=== PATIENT | female | born 1980 | race Caucasian/White ===

== ENCOUNTER 2021-09-21 08:24 | Outpatient (REF) | payer OTHER, SELFPAY ==
[2021-09-21 11:04] LABS: Hematocrit 40.4 % (37.0-47.0); Hemoglobin 13.2 g/dl (12.0-16.0); Mean Corpuscular HGB Conc 32.7 g/dl (31.0-35.0); Mean Corpuscular Hemoglobin 29.1 pg (27.0-33.0); Mean Platelet Volume 11.2 fL (9.4-12.3); Platelet Count 226 X10*3/uL (160-400); Red Blood Count 4.54 X10*6/uL (4.20-5.50); Red Cell Distribution Width 13.3 % (11.0-16.0); White Blood Count 6.6 X10*3/uL (4.8-10.8)
[2021-09-21 11:20] LABS: Alanine Aminotransferase 21 U/L (0-31); Albumin Level 3.9 g/dL (3.5-5.0); Alkaline Phosphatase 64 U/L (39-117); Anion Gap 10 (12-20); Aspartate Amino Transferase 17 U/L (5-31); Bilirubin Total 0.6 mg/dL (0.0-1.0); Blood Urea Nitrogen 9 mg/dL (9-16); Calcium 8.7 mg/dL (8.4-10.2); Carbon Dioxide 25 mmol/L (22-29); Chloride 109 mmol/L (96-108); Cholesterol 180 mg/dL; Estimated Glomerular Filt Rate > 60; Glucose Fasting 97 mg/dL (60-99); HDL Cholesterol 32 mg/dL; LDL Cholesterol Calculated 118 mg/dl; Potassium 3.7 mmol/L (3.3-5.1); Sodium 140 mmol/L (135-145); Total Protein 6.5 g/dL (6.5-8.0); Triglycerides 152 mg/dL
[2021-09-21 11:40] LABS: TSH reflex Free T4 0.73 uIU/mL (0.32-4.0)
== END 2021-09-21 08:25 | disposition home or self-care (01) ==
LOC: HO.WFDLDS 08:24
PROVIDERS: Visit Provider Hospitalist
DX: Z00.00 Encounter for general adult medical examination without abnormal findings (principal)
CPT/HCPCS: 36415; 80053; 80061; 84443; 85027

== ENCOUNTER 2021-12-07 14:00 | Outpatient (RCR) | payer OTHER, SELFPAY ==
--- NOTE | 2021-11-24 15:07 | MHC.PT.OD ---
[facility] [place] Office [employer] [facility] [place] Office [address] Gaurav Hurst [address] [phone] F: [phone] F: [phone] F: [phone] F: [phone] Physical Therapy Daily Note Diagnosis: Strain and muscle, fascia, and tendon of lower back, initial encounter S39.012A Strain of muscle, fascia, and tendon of lower back, initial encounter Patient with lower back pain and now some left sciatica needs eval signed by Joy Pabon 10/18/21 Date of Surgery: Date of Evaluation: 10/30/21 Date of Treatment: 11/24/21 Treatments to Date: Cancellations to Date: No Shows to Date: Authorized Visits: 5 Insurance End Date: Precautions/ Contraindications:LE weakness with MMT Subjective: 11/24/21 Pt expressing went to the gym last week, had to be helped by after getting off the bike after a short time due to severity of leg weakness and pins/needles , I felt like I was going to fall he had to help me walk. 11/22/21Pt HAS NOT BEEN TO PT IN 12 DAYS. Pt REPORTS SHE WAS SICK. REPORTS SHE TRIED THE BIKE AT THE GYM 2 DAYS IN A ROW WHICH WAS IRRITATNG.REPORTS THE NIGHT AFTER BEING AT THE GYM WAS HAVING LE PARESTHESIA. GABAPENTIN HELPS BUT MM RELAXER DOESNT HELP Pain Score and Location: 6 R GLUT TO R POST THIGH Objective Flowsheet: Tests & Measures Pt expressing lower back has been very sore/twingy through the hips radiates the down the hips, no significant change with implement of PT thus far. Reports sx variable L>R LE R LE generally weaker with L LE painful. Denies sx radiating below the knee bilaterally in recent days. Denies changes to bowel/bladder. No relief with muscle relaxers, taking ibuprofen on average twice daily 800mg. lumbar flexion 25%, lumbar extension 50%, Right sidebending 50%, Left sidebending 25% limited by pain L hip flexion 3+/5, R hip flexion 3+/5 pain un lumbar L knee extension 3/5, R knee extension 3-/5 L ankle DF 3/5 breaks with MMT, R ankle DF 3/5, L great toe ext 4+/5, R great toe 4+/5 (+) SLUMP, (+) SLR HS 130 degrees on R, 140 on L R heel raise able but very weak compared to L heel raise x 4 reps, It feels very heavy and weak Unable to walk on heels without UE support, unable to perform SLS without LOB L LE tandem stance eyes open 5 seconds (+) LOB R LE tandem stance eyes open 7 seconds (+) LOB L LE tandem stance eyes closed (+) LOB to the R at 3 seconds R LE tandem stance eyes open (+) LOB to the R around 4 seconds Pt expressing parathesias R>L UE radiating down arm, several times daily (+) headaches almost the whole side of my R face at times Exercises REASSESSMENT FIRST THEN PRONE OVER 1 PILLOW FOR REVIEW (REPORTS AT HOME WAS UNCOMFORTABLE WITHOUT A PILLOW UNDER HER HIPS), IMPROVEMENT WITH PILLOW, PRONE ON ELBOW X 10 SEC HOLD X 4 MINUTES, PRESS UP X 10 SEC X 10 WITH ABS IN WHILE UP, REVIEW OF STANDING EXTENSION ADVISED TO HOLD DUE TO INSTABILITY/BALANCE CONCERN. Romberg (-), Finger to nose (-). Tandem stance (L LE in back (+) LOB due to sx expressed in). Tandem stance (R LE no LOB). Denies parathesias in UE/face or altered sensation. Reassessment see above ROCKTAPE INTACT ON LUMBAR-REVIEWED REMOVAL WITH USE OF WATER/SOAP SLOWLY/ EDUCATED WITH GOALS OF USE REVIEWED USE LUMBAR ROLL,POSTIONAL CHANGES, KILO EXT PROG (DIST BOOK TO TREE) Modalities Assessment: Pt has attended 5 sessions since start of care on 10/30/21, missed nearly two weeks of therapy due to illness. Today presents with ongoing back pain and radiating R>L LE pain, sx variable in frequency. Pt presents with (+) SLR on R, noted weakness during MMT bilaterally. She is unable to mantain tandem stance with eyes open or closed without LOB >R side. She reports episode which occurred after riding the bike at the gym which left her unable to stand or ambulate without aide due to heavy weakness in her bilateral LE resulting in her coming to her aide. During neuro exam weakness in LE noted bilaterally. DTRs patellar 1+ R, 2+ L LE. DTR bicep and tricep 2+ B. At this time, therapist is recommending MD follow-up with concern for unknown cause multi-level weakness of the LE. She would likely benefit from MRI of the lumbar spine and or consult to neurology. She expresses intermittent parathesias in her R> UE also. She has demonstrated poor tolerance for trial of manual long axis distraction and based on outcome of single LE response she did not appear to be a candidate for mechanical lumbar traction. Negative Romberg and finger to nose testing. Pt has been encouraged to perform prone lumbar exercises within goals of centralization vs. peripheralization. She has been educated to D/C activity which provoke pain in her lumbar spine and LE. Pt has a follow up with PCP provider early next week. Pt may benefit from continued therapy at a frequency of 1x while awaiting further assessment. CENTRALIZATION WITH PRONE, PERIPHERALIZATION IN SMALL TIME WITH STAND, SOME RELIEF WITH SINCERE PT Plan: Follow up with PCP re: LE weakness and ongoing R LE SLR (+) prone knee bend Short Term Goals: 1. Centralize L>R LE sx to midline lower back. 2. Improve hip extension strength 4/5 B. 3. Improve strength hip abd 4+/5. 4. Initiate HEP. 5. Pt will demonstrate log roll with proper technique. 6. Symmetrical weight bearing in sitting and ambulation. 7. Complete bridge with symmetry and (-) sx sciatica. 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 Pt will demonstrate (-) lumbar instability testing. 2. Pt will demonstrate (-) SLR and (-) slump testing. 3. I HEP with good body mechanics awareness. 4. Resume sleep without disturbance secondary to scatica sx. 5. Resume walking program with good core activation, no L sx with ambulation. Electronically signed by: Janina German, PT, DPT
== END 2022-03-08 08:12 | disposition home or self-care (01) ==
LOC: HO.PTWFD 14:00
PROVIDERS: PCP Family Medicine; Visit Provider Hospitalist
DX: S39.012A Strain of muscle, fascia and tendon of lower back, initial encounter (principal)
CPT/HCPCS: 97014; 97110; 97140; 97162; 97164; 97530; 97535

== ENCOUNTER 2021-12-12 13:34 | Outpatient (REF) | payer OTHER, SELFPAY ==
--- NOTE | ~2021-12-12 | MR_ITS ---
EXAMINATION: MR LUMBAR SPINE WITHOUT CONTRAST CLINICAL INFORMATION: Radiculopathy. COMPARISON: There are no prior studies available comparison. TECHNIQUE: MRI of the lumbar spine was obtained using routine sequences without contrast. FINDINGS: VERTEBRAL BODIES AND PARASPINAL STRUCTURES: There are mild retrolistheses of L2 on L3 and L5 on S1. There is narrowing of intervertebral disc heights with loss of signal from the discs throughout the lumbar spine, relatively sparing L4-L5. There is mild loss of vertebral body height of T12 superiorly which is likely chronic, as this vertebra has isointense signal relative to the adjacent structures. There are degenerative endplate contour changes with Schmorl's nodes at this level. No acute fractures are demonstrated. There is an area of increased T2 and STIR signal with mildly increased T1 signal in the body of L2, most consistent with a hemangioma. There are mild degenerative endplate contour changes at multiple levels. Overall, marrow signal is homogenous. The visualized retroperitoneal and pelvic structures are unremarkable. CONUS MEDULLARIS AND CAUDA EQUINA: Normal, terminating at the level of L1. The lower thoracic spinal cord appears normal. The cauda equina nerve roots and filum terminale appear normal. SPINAL LEVELS: L1-L2: The facet joints appear normal bilaterally. Disc contour is normal. There is no central stenosis or foraminal narrowing. L2-L3: There is mild bilateral facet arthropathy. Disc contour is normal. There is no central stenosis and the neural foramina are patent bilaterally. L3-L4: There is mild bilateral facet arthropathy. Disc contour is normal. There is no central stenosis or foraminal narrowing. L4-L5: There is moderate bilateral facet arthropathy with ligamenta flava hypertrophy. There is a mild diffuse disc bulge which is slightly more prominent to the right of midline, but there is no central stenosis or foraminal nerve root impingement. L5-S1: There is moderate right and mild left facet arthropathy. There is a posterior disc protrusion with an annular fissure which is most prominent centrally and to the right of midline with distortion of the ventral thecal sac, without definite impingement on the traversing S1 nerve roots. There are small inferior foraminal disc protrusions bilaterally without exiting nerve root impingement. There is no central stenosis. MR/MR lumbar spine wo con IMPRESSION: 1. There are no acute fractures or subluxations. 2. At L5-S1 there is facet arthropathy and there is a posterior disc protrusion with an annular fissure. There is no foraminal or traversing nerve root impingement or central stenosis. 3. At L4-L5 there is moderate facet arthropathy, and there is a mild diffuse disc bulge. There is no central stenosis or foraminal narrowing.
== END 2021-12-12 13:35 | disposition home or self-care (01) ==
LOC: HO.MRI 13:34
PROVIDERS: Visit Provider Hospitalist
DX: M54.16 Radiculopathy, lumbar region (principal)
CPT/HCPCS: 72148

== ENCOUNTER → 2022-02-06 09:00 | Outpatient (BNVA) | payer OTHER, SELFPAY | PROVIDERS: PCP Hospitalist; Visit Provider Nurse Practitioner Family | DX: M53.3 Sacrococcygeal disorders, not elsewhere classified (principal); M47.27 Other spondylosis with radiculopathy, lumbosacral region; M47.817 Spondylosis without myelopathy or radiculopathy, lumbosacral region; M53.9 Dorsopathy, unspecified | CPT/HCPCS: 99202 ==

== ENCOUNTER 2022-02-14 11:59 | Outpatient (REF) | payer OTHER, SELFPAY ==
[2022-02-14 12:44] LABS: Mean Corpuscular HGB Conc 31.1 g/dl (31.0-35.0); Mean Corpuscular Hemoglobin 27.8 pg (27.0-33.0); Mean Corpuscular Volume 89.6 fL (80.0-98.0); Mean Platelet Volume 9.9 fL (9.4-12.3); Platelet Count 341 X10*3/uL (160-400); Red Blood Count 3.45 X10*6/uL (4.20-5.50); White Blood Count 7.7 X10*3/uL (4.8-10.8)
[2022-02-14 12:52] LABS: Anion Gap 12 (12-20); Blood Urea Nitrogen 11 mg/dL (9-16); Calcium 9.1 mg/dL (8.4-10.2); Carbon Dioxide 24 mmol/L (22-29); Chloride 106 mmol/L (96-108); Estimated Glomerular Filt Rate > 60; Glucose Random 108 mg/dL (60-115); Hemoglobin 9.6 g/dl (12.0-16.0); Potassium 4.1 mmol/L (3.3-5.1); Sodium 138 mmol/L (135-145)
[2022-02-14 12:53] LABS: Hematocrit 30.9 % (37.0-47.0)
== END 2022-02-14 12:00 | disposition home or self-care (01) ==
LOC: HO.WFDLDS 11:59
PROVIDERS: Visit Provider Hospitalist
DX: N20.0 Calculus of kidney (principal); M54.32 Sciatica, left side; A41.9 Sepsis, unspecified organism
CPT/HCPCS: 36415; 80048; 85027

== ENCOUNTER 2022-03-06 09:54 | Outpatient (REF) | payer OTHER, SELFPAY ==
[2022-03-06 11:24] LABS: Hematocrit 36.8 % (37.0-47.0); Hemoglobin 11.7 g/dl (12.0-16.0); Mean Corpuscular HGB Conc 31.8 g/dl (31.0-35.0); Mean Corpuscular Hemoglobin 28.5 pg (27.0-33.0); Mean Corpuscular Volume 89.8 fL (80.0-98.0); Mean Platelet Volume 10.1 fL (9.4-12.3); Platelet Count 239 X10*3/uL (160-400); Red Cell Distribution Width 14.6 % (11.0-16.0)
[2022-03-06 11:51] LABS: Anion Gap 11 (12-20); Blood Urea Nitrogen 14 mg/dL (9-16); Calcium 9.2 mg/dL (8.4-10.2); Carbon Dioxide 26 mmol/L (22-29); Chloride 106 mmol/L (96-108); Estimated Glomerular Filt Rate > 60; Glucose Random 94 mg/dL (60-115); Potassium 3.5 mmol/L (3.3-5.1); Sodium 139 mmol/L (135-145)
== END 2022-03-06 09:55 | disposition home or self-care (01) ==
LOC: HO.WFDLDS 09:54
PROVIDERS: Visit Provider Hospitalist
DX: N17.9 Acute kidney failure, unspecified (principal); N20.0 Calculus of kidney; D64.9 Anemia, unspecified; R31.9 Hematuria, unspecified
CPT/HCPCS: 36415; 80048; 85027; 87086; 87088; 87186